=== PATIENT | female | born 1975 | race Caucasian/White ===

== ENCOUNTER → 2019-05-19 15:20 | Outpatient (CLI) | payer OTHER, SELFPAY ==
[2019-05-19 18:25] LABS: Follicle Stimulating Hormone 3.23 mIU/mL
== END ==
DX: N91.2 Amenorrhea, unspecified (principal)
CPT/HCPCS: 36415; 83001

== ENCOUNTER → 2019-05-23 15:11 | Outpatient (CLI) | payer OTHER, SELFPAY ==
--- NOTE | 2019-05-23 15:12 | DI.US.S_ITS ---
PROCEDURE: US PELVIC COMPLETE INDICATIONS: AMENORRHEA TECHNIQUE: Real-time scanning was performed of the pelvic organs, with image documentation. Additional endovaginal scanning was necessary due to incomplete visualization of the adnexal and endometrial structures by transabdominal scanning. COMPARISON: None. FINDINGS: Transabdominal scanning: Limited scanning through the kidneys shows no hydronephrosis. No pathologic free abdominal or pelvic fluid. Endovaginal scanning: Uterus: Uterus is normal in size at 8.9 x 6.3 x 6.2 cm. The endometrium measures 9.6 mm in combined thickness. Ovaries: Dominant right follicular cyst measuring 2.0 cm; otherwise normal right ovary at 4.3 x 2.3 x 2.5 cm. Left ovary not visualized. IMPRESSION: No source for amenorrhea identified. Dictated by: Aleks ADLER Interpreted: Sana Mehta MD on 05/23/2019 at 16:53 Approved by: Sana Mehta M.D. on 05/23/2019 at 17:34
== END ==
PROVIDERS: PCP Nurse Practitioner
DX: N91.2 Amenorrhea, unspecified (principal); N83.01 Follicular cyst of right ovary
CPT/HCPCS: 76830; 76856

== ENCOUNTER → 2019-06-28 09:29 | Outpatient (CLI) | payer OTHER, SELFPAY ==
[2019-06-28 10:07] LABS: Hematocrit 41.9 % (36-46); Hemoglobin 14.3 g/dL (12.0-16.0); Mean Corpuscular HGB Conc 34.1 % (30-36); Mean Corpuscular Hemoglobin 30.7 PG (26-34); Platelet Count 327 X10^3/uL (150-400); Red Blood Cell Count 4.66 X10^6/uL (4.0-5.2); Red Cell Distribution Width 12.9 % (11.6-14.8)
[2019-06-28 11:15] LABS: Alanine Aminotransferase 26 IU/L (<35); Albumin 4.4 g/dL (3.5-5.0); Albumin Globulin Ratio 1.4 (1.0-2.8); Alkaline Phosphatase 41 U/L (38-126); Aspartate Aminotransferase 33 IU/L (14-36); Bilirubin Total 1.1 mg/dL (0.2-1.3); Blood Urea Nitrogen 12 mg/dL (7-17); Calcium 9.8 mg/dL (8.4-10.2); Carbon Dioxide 27 mmol/L (22-32); Chloride 103 mmol/L (98-107); Cholesterol 259 mg/dL (140-199); Estimated Glomerular Filt Rate > 60.0 mL/min (>60); Globulin 3.2 g/dL (1.7-4.1); Glucose 101 mg/dL (70-100); HDL Cholesterol 40 mg/dL (40-60); HEMOLYSIS < 15 (0-50); LDL Cholesterol Calculated 201 mg/dL (<100); Potassium 4.5 mmol/L (3.4-5.1); Sodium 141 mmol/L (137-145); Total Protein 7.6 g/dL (6.3-8.2); Triglycerides 92 mg/dL (35-150)
[2019-06-28 11:32] LABS: Free T3, Triiodothyronine Free 3.87 pg/mL (2.77-5.27); Free T4, Direct Thyroxine 0.97 ng/dL (0.78-2.19)
[2019-06-28 11:46] LABS: Thyroid Stimulating Hormone 2.36 uIU/mL (0.47-4.68)
== END ==
PROVIDERS: PCP Nurse Practitioner; Referring Provider Nurse Practitioner; Visit Provider Nurse Practitioner
DX: Z00.00 Encounter for general adult medical examination without abnormal findings (principal); E66.9 Obesity, unspecified; F41.8 Other specified anxiety disorders
CPT/HCPCS: 36415; 80053; 80061; 84439; 84443; 84481; 85027

== ENCOUNTER → 2019-07-05 09:14 | Outpatient (CLI) | payer OTHER, SELFPAY ==
--- NOTE | 2019-07-05 09:16 | DI.MG.S_ITS ---
BILATERAL DIGITAL SCREENING MAMMOGRAM 3D/2D WITH CAD: 07/05/2019 CLINICAL: Baseline exam. Routine screening. No prior exams were available for comparison. The tissue of both breasts is heterogeneously dense. This may lower the sensitivity of mammography. Current study was also evaluated with a Computer Aided Detection (CAD) system. No significant masses, calcifications, or other findings are seen in either breast. IMPRESSION: NEGATIVE There is no mammographic evidence of malignancy. A 1 year screening mammogram is recommended. This exam was interpreted at Station ID: [id number]. NOTE: For mammograms, a report in lay terms will be sent to the patient. Approximately 15% of breast malignancies will not be visualized mammographically. In the management of a palpable breast mass, a negative mammogram must not discourage biopsy of a clinically suspicious lesion. Electronically Signed By: Qiana pardo/torsten:07/05/2019 10:05:10 letter sent: Normal Exam ACR BI-RADS Category 1: Negative [id number]
== END ==
PROVIDERS: PCP Nurse Practitioner; Referring Provider Nurse Practitioner; Visit Provider Nurse Practitioner
DX: Z12.31 Encounter for screening mammogram for malignant neoplasm of breast (principal)
CPT/HCPCS: 77063; 77067

== ENCOUNTER 2020-10-13 13:21 | Emergency (ER) | payer OTHER, SELFPAY ==
--- NOTE | 2020-10-13 13:22 | ED.LOWEXIN ---
HPI - Extremity Injury (Lower) General Chief Complaint: Extremity Injury, Lower Stated Complaint: RIGHT FOOT INJURY Time Seen by Provider: 10/13/20 13:22 Source: patient Mode of arrival: Ambulatory Limitations: no limitations History of Present Illness HPI Narrative: 45-year-old female nonsmoker with history of hyperlipidemia presents with a chief complaint of right foot pain for about the past week. She states she got her foot caught up in some netting in the garden and has had pain ever since. She has pain with ambulation and improvement with rest. Has developed some swelling and discoloration over the lateral aspect of her foot. She denies numbness, tingling or weakness. She denies any ankle knee or hip pain. She is otherwise well and free of complaint Related Data Previous Rx's Medication Instructions Recorded sertraline 25 mg tablet 25 mg PO DAILY #30 tab 06/06/19 atorvastatin 20 mg tablet 20 mg PO DAILY #90 tab 07/03/19 Allergies Allergy/AdvReac Type Severity Reaction Status Date / Time No Known Drug Allergies Allergy Verified 07/17/19 13:58 Review of Systems Constitutional Constitutional: Denies chills, Denies fatigue, Denies fever(s), Denies frequent falls, Denies lethargy and Denies weakness Eyes Eyes: Denies change in vision, Denies eye discharge, Denies irritation and Denies loss of vision ENT Ears, Nose, Mouth, and Throat: Denies change in voice, Denies dizziness, Denies neck pain, Denies sore throat and Denies throat swelling Cardiovascular Cardiovascular: Denies chest pain, Denies irregular heart rhythm, Denies lightheadedness, Denies palpitations, Denies dyspnea, Denies dyspnea on exertion and Denies orthopnea Respiratory Respiratory: Denies cough, Denies dyspnea, Denies dyspnea on exertion and Denies wheezing Gastrointestinal Gastrointestinal: Denies abdominal pain, Denies change in bowel habits, Denies diarrhea, Denies nausea and Denies vomiting Musculoskeletal Musculoskeletal: Reports abnormal gait, Denies neck pain and Denies numbness Integumentary/Breasts Skin/Breast: Denies pruritus, Denies erythema, Denies rash and Denies wounds Neurologic Neurologic: Reports abnormal gait, Denies behavioral changes, Denies confusion, Denies dizziness, Denies frequent falls, Denies loss of vision, Denies numbness and Denies weakness Psychiatric Psychiatric: Denies anxiety, Denies behavioral changes, Denies confusion, Denies depression, Denies homicidal ideation and Denies suicidal ideation Endocrine Endocrine: Denies fatigue, Denies flushing and Denies palpitations Hematologic/Lymphatic Hematologic/Lymphatic: Denies easy bruising Allergic/Immunologic Allergic/Immunologic: Denies urticaria, Denies throat swelling and Denies wheezing Patient History Medical History Chicken pox Depression with anxiety Hyperlipidemia No pertinent past medical history Obesity (BMI 30.0-34.9) Family History Father Cancer History of heart disease Hyperlipidemia Mother Hypertension Brother Mental health problem Grandfather Cancer Grandmother Cancer Grandfather History of heart disease Grandmother Aneurysm Social History Smoking Status: Never smoker Smoking Status: Never smoker Exam Narrative Exam Narrative: GEN: AOx3 and in mild distress EYES: Pupils are equal, round, and reactive to light and accommodation. Extraoccular muscles are intact bilaterally. There is no subconjunctival hemorrhage or exudate. CHEST: Lungs are clear to auscultation bilaterally and free of wheezes, rales, or rhonchi. Heart rate is regular rhythm, there are no murmurs, clicks, rubs, or gallops. There is no chest wall tenderness. ABD: Abdomen is soft and nontender. There is no guarding or rebound. Bowel sounds are normal in all 4 quadrants. There is no mass or organomegaly. EXT: Pain and swelling over right lateral foot with yellowing of the skin suggesting aging bruising. This is closed, isolated and neurovascularly intact otherwise, Full painless ROM of all extremities with no loss of sensation or strength. SKIN: Warm, pink, and dry. No erythema or rash Initial Vital Signs Initial Vital Signs: Vital Signs Temperature 98.4 F 10/13/20 13:31 Pulse Rate 76 10/13/20 13:31 Respiratory Rate 18 10/13/20 13:31 Blood Pressure 146/87 H 10/13/20 13:31 Pulse Oximetry 98 10/13/20 13:31 Procedures Orthopedic Splinting/Casting Injury #1: Side: right Lower Extremity Injury Location: foot Lower Extremity Immobilizer: post-op shoe Other Orthopedic Equipment: crutches Post splinting neuro exam: intact Post splinting vascular exam: intact Placed by: Nursing Course Orders Ordered: ED Orders 10/13/20 13:31 XR foot RT min 3V Stat Consultations Consultation #1: Discussed with on-call Orthopedics, recommends nonweightbearing splint as described with follow-up at ortho office Vital Signs Vital signs: Vital Signs - 8 hr 10/13/20 13:31 Temperature 98.4 F Pulse Rate 76 Respiratory Rate 18 Blood Pressure 146/87 H Pulse Oximetry 98 Discharge Plan Departure Patient Disposition: Home Clinical Impression: Closed fracture of fifth metatarsal bone Qualifiers: Encounter type: initial encounter Fracture alignment: displaced Laterality: right Qualified Code(s): S92.351A - Displaced fracture of fifth metatarsal bone, right foot, initial encounter for closed fracture Instructions: DI for Foot Fracture Activity Restrictions/Additional Instructions: *You have been diagnosed with [minimally displaced fracture of the 5th metatarsal of your right foot] *What to do: *Please continue to take your regular medications as directed. [ ] New medication prescriptions sent to your pharmacy: [ ] [ ] New medication written as a paper prescription [ x] No new medications given NO WEIGHT BEARING until follow up *Please follow up with [facility] in 2-3 days, call for an appointment. Let them know you were seen in the Emergency Department and that we ask that you be seen in follow up. We will electronically transmit a record of today's note if your PCP is in our system *Return to Emergency Department if you should have any new, worsening or concerning symptoms, such as [fever greater than 101 F, shaking chills, worsening pain, persistent vomiting or other bothersome symptoms] Prescriptions: No Action atorvastatin [Lipitor] 20 mg tablet 20 mg PO DAILY Qty: 90 RF: 1 sertraline 25 mg tablet 25 mg PO DAILY Qty: 30 RF: 3 Referrals: Tawanna Couch ARNP [Primary Care Provider] - Ricardo Borja MD [Physician] -
[2020-10-13 13:31] VITALS: BP 146/87; PULSE 76; RESP 18; TEMP 36.9; O2SAT 98; BMI 33.9
--- NOTE | 2020-10-13 13:31 | DI.RAD.S_ITS ---
PROCEDURE: XR FOOT RT MIN 3V INDICATIONS: possible fracture TECHNIQUE: 3 views of the foot were acquired. COMPARISON: None. FINDINGS: Bones: Study limited due to overexposure of the distal toes of the right 2nd through 5th digits. The toes are only imaged to the level of the proximal phalanx. Within these limitations, there is a mildly displaced oblique fracture involving the right 5th meta tarsal shaft. Remainder of the visualized osseous structures appear intact. Prominent plantar calcaneal spur. Soft tissues: No tibiotalar joint effusion. Achilles tendon appears normal. Right forefoot soft tissue swelling. IMPRESSION: Limited evaluation of the right foot secondary to technical issues. Within these limitations, there is a minimally displaced oblique fracture involving the right 5th metatarsal shaft. Dictated by: Beka Faustin M.D. on 10/13/2020 at 14:22 Approved by: Beka Faustin M.D. on 10/13/2020 at 14:25
== END 2020-10-13 14:18 | disposition home or self-care (01) ==
PROVIDERS: Emergency Provider Emergency Medicine; PCP Nurse Practitioner
DX: S92.351A Displaced fracture of fifth metatarsal bone, right foot, initial encounter for closed fracture (principal)
CPT/HCPCS: 73630; 99283